=== PATIENT | male | born 2000 | race Caucasian/White ===

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

== ENCOUNTER 2019-08-24 16:16 | Emergency (ER) | payer OTHER ==
[2019-08-24] MEDS ORDERED: Acetaminophen 500 MG TAB ONE (17:11)
--- NOTE | 2019-08-24 17:23 | CT ---
CT OF BRAIN PERFORMED WITHOUT CONTRAST ENHANCEMENT: 08/23/28 HISTORY: Fall from a ladder with head injury. COMPARISON: 03/11/18 study. The ventricular and cisternal system is within normal limits. There is no signs of intracerebral hemo rrhage or extra-axial fluid collections. Mastoid air cells and visualized sinuses are clear. IMPRESSION: No acute intracranial abnormalities. POS: [facility]
[2019-08-24] MEDS ORDERED: Ketorolac Tromethamine 30 MG/ML VIAL ONE (19:18)
== END 2019-08-24 19:29 | disposition home or self-care (01) ==
LOC: ERS 16:16
DX: S06.0X9A Concussion with loss of consciousness of unspecified duration, initial encounter (principal); F43.10 Post-traumatic stress disorder, unspecified; F90.9 Attention-deficit hyperactivity disorder, unspecified type; F17.290 Nicotine dependence, other tobacco product, uncomplicated; G40.909 Epilepsy, unspecified, not intractable, without status epilepticus; W20.8XXA Other cause of strike by thrown, projected or falling object, initial encounter; Z79.899 Other long term (current) drug therapy
CPT/HCPCS: 36416; 70450; 96374; J1885